=== PATIENT | male | born 2000 | race Caucasian/White ===

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

== ENCOUNTER → 2020-04-24 | Outpatient (CLI) | payer SELFPAY | END | disposition home or self-care (01) | LOC: LABWHC1 09:26 | PROVIDERS: ATTEND Family Medicine | DX: R51 Headache (principal); R07.0 Pain in throat; R09.89 Other specified symptoms and signs involving the circulatory and respiratory systems; R19.7 Diarrhea, unspecified | CPT/HCPCS: U0003; C9803 ==